=== PATIENT | female | born 1955 | race Native Hawaiian/Other Pacific Islander ===

== ENCOUNTER 2019-09-10 20:38 | Emergency (ER) | payer OTHER ==
[~2019-09-10] VITALS: Ht 170.2 cm; Wt 72.1 kg
[2019-09-10 21:20] LABS: PLATELET COUNT 212 K/uL (152-353)
[2019-09-10 21:41] LABS: POTASSIUM 4.3 mmol/L (3.6-5.2)
[2019-09-10 22:30] VITALS: BP 175/70; TEMP 98.7
[2019-09-10] MEDS ORDERED: CELEXA10 MG PO (22:56)
[2019-09-10] MEDS ORDERED: HUMULIN R100 UNIT/M SC (22:58)
[2019-09-10] MEDS ORDERED: DOCU100C10 PO (22:59)
[2019-09-10] MEDS ORDERED: KEPPRA1000 MG PO (22:59)
[2019-09-10] MEDS ORDERED: LANTUS100 UNIT/M SC (22:59)
[2019-09-10] MEDS ORDERED: MULT1 PO (23:00)
[2019-09-10] MEDS ORDERED: MELATONIN3 MG PO (23:00)
[2019-09-10] MEDS ORDERED: RISP0.5T2 PO (23:01)
== END 2019-09-10 22:30 | disposition other institution (70) ==
LOC: ED 20:38
PROVIDERS: Emergency Medicine Emergency Medical Services
DX: R46.89 Other symptoms and signs involving appearance and behavior (principal); Z11.59 Encounter for screening for other viral diseases; Z04.6 Encounter for general psychiatric examination, requested by authority; E11.9 Type 2 diabetes mellitus without complications; Z79.4 Long term (current) use of insulin
CPT/HCPCS: 36415; 80053; 81000; 85027; 87086; 87088; 87635; 93005; 96372; 99283; 99285; G2023; J1815; U0003